=== PATIENT | female | born 1990 | race Caucasian/White ===

== ENCOUNTER 2022-04-06 16:31 | Emergency (ER) | payer MEDICAID, SELFPAY ==
[2022-04-06] MEDS ORDERED: Ibuprofen 200 MG TAB ONE (17:20)
[2022-04-06] MEDS ORDERED: predniSONE 20 MG TAB ONE (17:21)
== END 2022-04-06 17:25 | disposition home or self-care (01) ==
LOC: BURERS 16:31
DX: M54.16 Radiculopathy, lumbar region (principal); G89.29 Other chronic pain
CPT/HCPCS: 99282; J7512

== ENCOUNTER 2024-06-27 15:11 | Emergency (ER) | payer OTHER, SELFPAY ==
[~2024-06-27 15:11] MED LIST: Iopamidol 370 76% 100 ML VIAL ONE
[2024-06-27 16:49] LABS: #Basophils 0.1 thou/uL (0.0-0.2); #Eosinphils 0.3 thou/uL (0.0-0.7); #Monocytes 0.8 thou/uL (0.11-0.59); #Neutrophils 5.8 thou/uL (1.40-6.50); %Basophils 1.2 % (0.0-1.0); %Eosinophils 3.7 % (0.0-10.0); %Lymphocytes 12.2 % (21.0-51.0); %Monocytes 10.5 % (0.0-10.0); %Neutrophils 72.4 % (42.0-75.0); Hematocrit 40.8 % (36.0-47.0); Hemoglobin 13.2 g/dL (12.0-16.0); Mean Corpuscular HGB CONC 32.3 g/dL (32.0-36.0); Mean Corpuscular Hemoglobin 28.6 pg (27.0-31.0); Mean Corpuscular Volume 88.5 fl (78.0-98.0); Mean Platelet Volume 7.7 fL (7.4-10.4); Platelet Count 329 10x3/uL (130-400); RBC Distribution Width 11.8 % (11.5-14.5); Red Blood Cell (RBC) Count 4.61 mill/uL (4.20-5.40)
[2024-06-27 17:11] LABS: BHCG - Serum Negative (NEGATIVE); Pregs Control Background? CLEAR/WHITE (CLR/WHITE); Pregs Control Bar Appear? YES (CONTROL BAR)
[2024-06-27] MEDS ORDERED: methylPREDNISolone Sod Succ/PF 125 MG/2 ML VIAL ONE (17:19)
[2024-06-27 17:24] LABS: ALT (SGPT) 14 U/L (8-55); AST (SGOT) 15 U/L (5-34); Albumin 3.6 g/dL (3.5-5.0); Alkaline Phosphatase 77 U/L (40-110); Anion Gap 15 mmol/L (10-20); BUN (Urea Nitrogen) 10 mg/dL (7.0-18.7); Bilirubin, Total 0.6 mg/dL (0.2-1.2); Calc. Creatinine Clearance 0 mL/min (70-130); Calcium 8.6 mg/dL (7.8-10.44); Carbon Dioxide 19 mmol/L (22-29); Chloride 108 mmol/L (98-107); Estimated GFR 98; Globulin 3.7 g/dL (2.4-3.5); Glucose 79 mg/dL (70-105); Lipase 6 U/L (8-78); Potassium 3.2 mmol/L (3.5-5.1); Protein, Total 7.3 g/dL (6.0-8.3); Sodium 139 mmol/L (136-145)
== END 2024-06-27 18:49 | disposition home or self-care (01) ==
LOC: BURERS 15:11
DX: J02.9 Acute pharyngitis, unspecified (principal)
CPT/HCPCS: 74177; 80053; 83690; 84703; 85025; 96374; J2919; Q9967